=== PATIENT | female | born 1990 | race Caucasian/White ===

== ENCOUNTER 2018-09-02 03:59 | Emergency (ER) | payer OTHER ==
[~2018-09-02] VITALS: Ht 162.6 cm; Wt 58.0 kg
[2018-09-02] MEDS ORDERED: allergy medication PO (04:51)
[2018-09-02] MEDS ORDERED: NORG1TAB6 PO (04:51)
[2018-09-02] MEDS ORDERED: MONT10TA9 PO (04:51)
[2018-09-02 04:57] LABS: BASO # 0.1 x10^3/uL (0.0-0.2); BASO % 1 % (0-3); EOS # 0.4 x10^3/uL (0.0-0.7); EOS % 6 % (0-3); HEMATOCRIT 40.8 % (36.0-47.0); LYMPH # 2.2 x10^3/uL (1.0-4.8); LYMPH % 33 % (24-48); MEAN CORPUSCULAR HEMOGLOBIN 31 pg (25-35); MEAN CORPUSCULAR HGB CONC 34 g/dL (31-37); MEAN CORPUSCULAR VOLUME 89 fL (79-100); MONO # 0.4 x10^3/uL (0.0-1.1); MONO % 7 % (0-9); NEUT # 3.5 x10^3uL (1.8-7.7); NEUT % 53 % (31-73); PLATELET COUNT 197 x10^3/uL (140-400); RED BLOOD COUNT 4.58 x10^6/uL (3.50-5.40); RED CELL DISTRIBUTION WIDTH 13.2 % (11.5-14.5); WHITE BLOOD COUNT 6.6 x10^3/uL (4.0-11.0)
--- NOTE | 2018-09-02 05:01 | PHYS DOC ---
Adult General Chief Complaint Chief Complaint: ABDOMINAL PAIN HPI HPI 27-year-old female presents with right lower quadrant abdominal pain for last 2 days. Early yesterday morning, the patient states that she began have an intermittent right sided abdominal cramping. Seemed to be more around her belly button and has migrated over to the right lower quadrant. Pain was not constant but seemed to come and go as it pleases. Nothing seems to make it better or worse. By yesterday evening, the pain was more frequent. She was unable to have sex with her because of pain. The pain woke her from her sleep about 2 hours prior to arrival. Any kind of bouncing or vibration of her body makes the pain worse. She has had intermittent nausea, but no vomiting. She denies diarrhea. Her last bowel movement was this morning. She is on control and does not believe she is . She denies dysuria or urinary frequency. She has no fever or chills. She's never had any abdominal surgery. Review of Systems Review of Systems Constitutional: Denies fever or chills [] Eyes: Denies change in visual acuity, redness, or eye pain [] HENT: Denies nasal congestion or sore throat [] Respiratory: Denies cough or shortness of breath [] Cardiovascular: No additional information not addressed in HPI [] GI: RLQ abdominal pain, nausea. No vomiting, bloody stools or diarrhea [] : Denies dysuria or hematuria [] Musculoskeletal: Denies back pain or joint pain [] Integument: Denies rash or skin lesions [] Neurologic: Denies headache, focal weakness or sensory changes [] Endocrine: Denies polyuria or polydipsia [] All other systems were reviewed and found to be within normal limits, except as documented in this note. Allergies Allergies Allergies Coded Allergies Type Severity Reaction Last Updated Verified No Known Drug Allergies 09/02/18 No Physical Exam Physical Exam Constitutional: Well developed, well nourished, no acute distress, non-toxic appearance. [] HENT: Normocephalic, atraumatic, bilateral external ears normal, oropharynx moist, no oral exudates, nose normal. [] Eyes: PERRLA, EOMI, conjunctiva normal, no discharge. [] Neck: Normal range of motion, no tenderness, supple, no stridor. [] Cardiovascular:Heart rate regular rhythm, no murmur [] Lungs & Thorax: Bilateral breath sounds clear to auscultation [] Abdomen: RLQ abdominal tenderness without rebound or guarding. [] Skin: Warm, dry, no erythema, no rash. [] Back: No tenderness, no CVA tenderness. [] Extremities: No tenderness, no cyanosis, no clubbing, ROM intact, no edema. [] Neurologic: Alert and oriented X 3, normal motor function, normal sensory function, no focal deficits noted. [] Psychologic: Affect normal, judgement normal, mood normal. [] Current Patient Data Lab Results Laboratory Tests Test 09/02/18 04:28 POC Urine HCG, Qualitative hcg negative (Negative) EKG EKG [] Radiology/Procedures Radiology/Procedures [] Impressions: CT abdomen and pelvis with contrast: Reason for examination: Right lower quadrant pain with nausea started last night. Helical images were obtained through the abdomen pelvis with intravenous administration of 75 cc Omnipaque 300. Reconstruction was performed in sagittal and coronal planes. Exposure: One or more of the following individualized dose reduction techniques were utilized for this examination: 1. Automated exposure control 2. Adjustment of the mA and/or kV according to patient size 3. Use of iterative reconstruction technique. The lung bases are clear. The heart size is normal with no pericardial effusion. No abnormality seen at the liver, spleen, gallbladder, adrenal glands or pancreas. The abdominal aorta and inferior vena cava show no acute abnormalities. The kidneys show a 2 cm cystic lesion with wall calcification posteriorly in the upper pole the right kidney. No renal calculi, hydronephrosis or obstructive uropathy is seen. No abnormality seen at the appendix. There is no evidence of diverticulosis or diverticulitis. The small intestinal tract is not distended. The stomach is not distended. No bowel obstruction is evident. No abnormality seen at the bladder. No abnormality seen at the uterus. There is a probable 2 cm cyst at the right ovary with free fluid in the pelvic cul-de-sac. No abnormality seen at the left ovary. No acute bony abnormalities are seen. IMPRESSION: 2 cm cystic lesion in the upper pole the right kidney with calcification in the wall. Hypoechoic probable 2 cm cystic lesion in the right ovary with fluid in pelvic cul-de-sac. No abnormality seen at the appendix. Electronically signed by: Adali Christopher MD (09/02/2018 5:40 AM) [facility] DICTATED AND SIGNED BY: ADALI CHRISTOPHER MD DATE: 09/02/18 0529 CC: DEE HILTON DO; TURNER HINOJOSA Course & Med Decision Making Course & Med Decision Making Pertinent Labs and Imaging studies reviewed. (See chart for details) The patient's labs are unremarkable. Her urinalysis does suggest UTI and I will cover her with antibiotics. The patient's CT scan shows a cystic lesion in the upper pole of the right kidney. It also shows a probable 2 cm cyst in the right ovary with fluid in the pelvic cul-de-sac. It seems likely that this free fluid is the cause of the patient's pain. The fluid is most likely coming from the cyst. I will provide pain medication, Neola 5/325, for the patient and advise that she follow up with OB to ensure that this has resolved. She is stable for discharge at this time. Dragon Disclaimer Dragon Disclaimer This electronic medical record was generated, in whole or in part, using a voice recognition dictation system. Departure Departure: Referrals: TURNER HINOJOSA (PCP) Scripts Hydrocodone Bit/Acetaminophen (NORCO 5-325 TABLET) 1 Each Tablet 1 TAB PO PRN Q6HRS PRN for PAIN, #10 TAB 0 Refills Prov: DEE HILTON DO 09/02/18 Sulfamethoxazole/Trimethoprim (BACTRIM DS TABLET) 1 Each Tablet 1 TAB PO BID for 3 Days, #6 TAB Prov: DEE HILTON DO 09/02/18 DEE HILTON DO Sep 02, 2018 05:01
[2018-09-02 05:03] LABS: BILIRUBIN,URINE NEG (NEG); CLARITY,URINE CLOUDY; COLOR,URINE YELLOW; GLUCOSE,URINE NEG (NEG); UROBILINOGEN,URINE 0.2 mg/dL (0.2 mg/dL)
[2018-09-02 05:04] LABS: AMORPHOUS SEDIMENT,UR PRESENT /HPF; BACTERIA,URINE MANY /HPF (0-FEW); NITRITE,URINE NEG (NEG); SQUAMOUS EPITHELIAL CELL,UR MOD /LPF; WBC,URINE >40 /HPF (0-4)
[2018-09-02 05:08] LABS: ALBUMIN 3.5 g/dL (3.4-5.0); CALCIUM 8.5 mg/dL (8.5-10.1); CREATININE 0.7 mg/dL (0.6-1.0); GFR 101.1; POTASSIUM 3.7 mmol/L (3.5-5.1); TOTAL BILIRUBIN 0.3 mg/dL (0.2-1.0); TOTAL PROTEIN 6.9 g/dL (6.4-8.2)
[2018-09-02] MEDS ORDERED: IOHEXOL 300 MG/ML 75 ML VIAL. IV ONE (05:15)
[2018-09-02] MEDS ORDERED: CONTRAST GIVEN MC PRN (05:15)
--- NOTE | 2018-09-02 05:43 | RAD ---
CT abdomen and pelvis with contrast: Reason for examination: Right lower quadrant pain with nausea started last night. Helical images were obtained through the abdomen pelvis with intravenous administration of 75 cc Omnipaque 300. Reconstruction was performed in sagittal and coronal planes. Exposure: One or more of the following individualized dose reduction techniques were utilized for this examination: 1. Automated exposure control 2. Adjustment of the mA and/or kV according to patient size 3. Use of iterative reconstruction technique. The lung bases are clear. The heart size is normal with no pericardial effusion. No abnormality seen at the liver, spleen, gallbladder, adrenal glands or pancreas. The abdominal aorta and inferior vena cava show no acute abnormalities. The kidneys show a 2 cm cystic lesion with wall calcification posteriorly in the upper pole the right kidney. No renal calculi, hydronephrosis or obstructive uropathy is seen. No abnormality seen at the appendix. There is no evidence of diverticulosis or diverticulitis. The small intestinal tract is not distended. The stomach is not distended. No bowel obstruction is evident. No abnormality seen at the bladder. No abnormality seen at the uterus. There is a probable 2 cm cyst at the right ovary with free fluid in the pelvic cul-de-sac. No abnormality seen at the left ovary. No acute bony abnormalities are seen. IMPRESSION: 2 cm cystic lesion in the upper pole the right kidney with calcification in the wall. Hypoechoic probable 2 cm cystic lesion in the right ovary with fluid in pelvic cul-de-sac. No abnormality seen at the appendix. Electronically signed by: Adali Torre MD (09/02/2018 5:40 AM) [facility]
[2018-09-02] MEDS ORDERED: SULF1TAB24 PO (06:04)
[2018-09-02] MEDS ORDERED: HYDR-971 PO (06:04)
[2018-09-02 06:15] VITALS: BP 118/72
[2018-09-02] MEDS ORDERED: HYDROcodone/APAP 5/325MG 1 TAB TABLET PO ONE (06:15)
== END 2018-09-02 06:20 | disposition home or self-care (01) ==
LOC: ER 03:59
DX: N39.0 Urinary tract infection, site not specified (principal); Q61.9 Cystic kidney disease, unspecified
CPT/HCPCS: 36415; 74177; 80053; 81001; 81025; 85025; 87086; 99285; Q9967

== ENCOUNTER 2019-08-08 20:41 | Emergency (ER) | payer OTHER ==
[~2019-08-08] VITALS: Ht 162.6 cm; Wt 57.5 kg
[~2019-08-08 20:41] MED LIST: HYDR-3165 PO; MONT10TA80 PO; NORG1TAB6 PO; SULF1TAB24 PO; allergy medication PO
--- NOTE | 2019-08-08 21:06 | PHYS DOC ---
Past History Past Medical History: Asthma, Fibromyalgia, Kidney Stones Past Surgical History: No Surgical History Alcohol Use: Rarely Drug Use: None Adult General Chief Complaint Chief Complaint: MULTIPLE COMPLAINTS HPI HPI Patient is a 28-year-old female presents to the emergency department for evaluation. Her main reason for coming to the emergency department today is that she has been having 6-8 weeks of left-sided head pain, fullness, and paresthesias on the left side of her face. She has also been having intermittent paresthesias in her extremities �4 for the past several months as well. She has seen numerous physicians, including her primary care provider, a neurobiologist due to "inflammation in her chest" which was diagnosed as costochondritis, and has an appointment set up for rheumatology next , for diagnosis of fibro myalgia. The patient states that she is concerned about the ongoing symptoms and her head, and presented to the emergency department for evaluation. She has not had any muscle weakness, vision changes, nausea, vomiting, or diarrhea. Her LMP was 2 weeks ago, she takes control, and denies . The concern is more of the fullness and tingling on the left side of her face, the headache is a more minor component. There are no alleviating or exacerbating factors to her symptoms. Review of Systems Review of Systems Constitutional: Denies fever or chills [] Eyes: Denies change in visual acuity, redness, or eye pain [] HENT: Denies nasal congestion or sore throat [] Respiratory: Denies cough or shortness of breath [] Cardiovascular: The patient denies any shortness of breath, chest pain, palpitations, or orthopnea [] GI: Denies abdominal pain, nausea, vomiting, bloody stools or diarrhea [] : Denies dysuria or hematuria [] Musculoskeletal: Denies back pain or joint pain [] Integument: Denies rash or skin lesions [] Neurologic: Denies focal weakness or coordination difficulties[] Endocrine: Denies polyuria or polydipsia [] All other systems were reviewed and found to be within normal limits, except as documented in this note. Allergies Allergies Allergies Coded Allergies Type Severity Reaction Last Updated Verified No Known Drug Allergies 09/02/18 No Physical Exam Physical Exam PHYSICAL EXAM: CONSTITUTIONAL: Well developed, well nourished HEAD: normocephalic, atraumatic EENT: PERRL, EOMI. Conjunctivae normal color, sclerae non-icteric; moist mucous membranes. Tympanic membranes are normal bilaterally. NECK: Supple, non-tender; no meningismus. LUNGS: Lungs CTA, breathing even and unlabored. Normal air movement. HEART: Regular rate and rhythm, no murmur CHEST: No deformity; non-tender ABDOMEN: The abdomen is soft, and non-tender, no masses or bruits. EXTREM: Normal ROM; no deformity, no calf tenderness. Normal pulses palpable in all extremities. There is no pedal edema. SKIN: No rash; no diaphoresis NEURO: Alert; normal speech and cognition; CN's grossly intact; strength grossly intact without focal deficit. Sensation is grossly intact. Lndhyg-mghg-eoffpt and heel hemphill testing is normal. Visual cruz are intact by confrontation. BACK: No CVA TTP. EKG EKG [] Radiology/Procedures Radiology/Procedures PROCEDURE: CT HEAD WO CONTRAST Exam: CT head INDICATION: Left-sided headache TECHNIQUE: Sequential axial images through the head were obtained without the administration of IV contrast. Comparisons: None FINDINGS: No focal parenchymal lesion or hemorrhage is identified. There is no midline shift or sulcal effacement. No acute vascular territory infarction is identified. Millan-white distinction is preserved. The ventricular system is within normal limits without compression hydrocephalus. The basal cisterns are well maintained. The visualized portions of the paranasal sinuses and mastoid air cells are well-pneumatized. No acute fractures. IMPRESSION: No acute intracranial abnormality.[] Course & Med Decision Making Course & Med Decision Making I discussed test results with the patient, the need for further outpatient evaluation of her ongoing symptoms, possible need for neurology follow-up, and return precautions in detail. Dragon Disclaimer Dragon Disclaimer This electronic medical record was generated, in whole or in part, using a voice recognition dictation system. Departure Departure: Impression: Primary Impression: Paresthesias Additional Impression: Headache Disposition: HOME, SELF-CARE Condition: STABLE Referrals: TURNER HINOJOSA (PCP) Patient Instructions: General Headache Without Cause, Paresthesia Additional Instructions: Follow-up with neurology, Dr. Steve, . Please call to schedule appointment. Problem Qualifiers SWATHI GARNER MD Aug 08, 2019 21:06
[2019-08-08] MEDS ORDERED: ACETAMINOPHEN 500 MG TABLET PO ONE (21:15)
--- NOTE | 2019-08-08 21:41 | RAD ---
Exam: CT head INDICATION: Left-sided headache TECHNIQUE: Sequential axial images through the head were obtained without the administration of IV contrast. Comparisons: None FINDINGS: No focal parenchymal lesion or hemorrhage is identified. There is no midline shift or sulcal effacement. No acute vascular territory infarction is identified. Millan-white distinction is preserved. The ventricular system is within normal limits without compression hydrocephalus. The basal cisterns are well maintained. The visualized portions of the paranasal sinuses and mastoid air cells are well-pneumatized. No acute fractures. IMPRESSION: No acute intracranial abnormality. Exposure: One or more of the following in the visualized dose reduction techniques were utilized for this examination: 1. Automated exposure control 2. Adjustment of the MA and/or KV according to patient size Use of iterative of reconstructive technique Electronically signed by: Vero Munguia MD (08/08/2019 9:39 PM) [facility]
[2019-08-08 22:00] VITALS: BP 124/87
== END 2019-08-08 23:15 | disposition home or self-care (01) ==
LOC: ER 20:41
DX: R51 Headache (principal); R20.2 Paresthesia of skin; J45.909 Unspecified asthma, uncomplicated; M79.7 Fibromyalgia; Z87.442 Personal history of urinary calculi
CPT/HCPCS: 70450; 99284-25

== ENCOUNTER 2020-10-27 17:03 | Emergency (ER) | payer OTHER ==
[~2020-10-27] VITALS: Ht 162.6 cm; Wt 57.5 kg
[2020-10-27 17:53] LABS: BASO % 1 % (0-3); EOS # 0.1 x10^3/uL (0.0-0.7); EOS % 1 % (0-3); HEMATOCRIT 36.7 % (36.0-47.0); HEMOGLOBIN 12.2 g/dL (12.0-15.5); LYMPH # 1.7 x10^3/uL (1.0-4.8); LYMPH % 29 % (24-48); MEAN CORPUSCULAR HEMOGLOBIN 30 pg (25-35); MEAN CORPUSCULAR HGB CONC 33 g/dL (31-37); MEAN CORPUSCULAR VOLUME 91 fL (79-100); MONO # 0.5 x10^3/uL (0.0-1.1); MONO % 8 % (0-9); NEUT # 3.7 x10^3uL (1.8-7.7); NEUT % 61 % (31-73); PLATELET COUNT 171 x10^3/uL (140-400); RED BLOOD COUNT 4.03 x10^6/uL (3.50-5.40); RED CELL DISTRIBUTION WIDTH 13.6 % (11.5-14.5)
[2020-10-27 18:01] LABS: CALCIUM 8.4 mg/dL (8.5-10.1); CREATININE 0.7 mg/dL (0.6-1.0); GFR 98.9; POTASSIUM 3.2 mmol/L (3.5-5.1)
[2020-10-27 18:02] LABS: AMORPHOUS SEDIMENT,UR PRESENT /HPF; BACTERIA,URINE 0 /HPF (0-FEW); BILIRUBIN,URINE NEG (NEG); CLARITY,URINE CLOUDY; COLOR,URINE COLORLESS; GLUCOSE,URINE NEG (NEG); NITRITE,URINE NEG (NEG); RBC,URINE 0 /HPF (0-2); SQUAMOUS EPITHELIAL CELL,UR MOD /LPF; WBC,URINE 0 /HPF (0-4)
[2020-10-27] MEDS ORDERED: ONDANSETRON PF 4 MG/2 ML VIAL. IVP ONE (20:00)
[2020-10-27] MEDS ORDERED: IV NORMAL SALINE 1,000ML 1,000 ML IV ONE (20:00)
--- NOTE | 2020-10-27 20:06 | RAD ---
Exam: Ultrasound pelvis Indication: Pelvic pain, 8 weeks Technique: Real-time grayscale and color Doppler images of the pelvis were obtained by the department food safety manager. Comparisons: None FINDINGS: Uterus measures 9.5 x 4.8 x 4.9 cm. Within the endometrium there is complex fluid. No distinct yolk sac or pole is identified. Right ovary measures 2.4 x 1.9 x 1.8 cm. There is a complex heterogenous mass in the left adnexa adjacent to the left ovary which measures approximately 2.0 x 1.1 cm. The mass is rounded measuring approximately 2.6 x 3.3 cm. There is a moderate amount of complex fluid noted within the pelvis IMPRESSION: 1. Heterogenous mass in the left adnexa measuring approximately 2.6 x 3.3 cm which is adjacent to the left ovary, concerning for ectopic . 2. Small amount of complex fluid within the endometrium without distinct pole or yolk sac identified. No normal intrauterine is identified. 3. Moderate amount of complex free fluid in the pelvis. FOR INTERNAL CODING PURPOSES Critical result: Findings discussed with CORBY BRANDON at 10/27/2020 7:56 PM. RESULT CODE: (C) Electronically signed by: Vero Munguia MD (10/27/2020 8:03 PM) [facility]
--- NOTE | 2020-10-27 20:20 | PHYS DOC ---
Past History Past Medical History: Asthma, Fibromyalgia, Kidney Stones Past Surgical History: No Surgical History Alcohol Use: None Drug Use: None General Adult EDM: Chief Complaint: ABDOMINAL PAIN IN HPI: HPI: Patient is a 50-year-old female who presents emergency department with complaints of a sudden onset of severe lower abdominal pain that began today. Patient states she is currently , her last menstrual cycle was on September 10, 2020. She is 3, para 2, with no previous history. Patient states she has not been evaluated by her [facility] for this yet. She denies any fever, shortness of breath, dysuria, hematuria, increased urinary frequency, nausea, vomiting, or diarrhea. She denies any irregular vaginal discharge or vaginal odor. Patient states she has had some slight cramping in h er low back today. She states that this time she feels lightheaded but denies any syncope. She currently rates pain a 6 out of 10 on pain scale, she denies any alleviating factors. She states that the pain is sharp and stabbing. Review of Systems: Review of Systems: Complete ROS is negative unless otherwise noted in HPI. Current Medications: Current Meds: Current Medications Medications (Trade) Dose Ordered Sig/Johanna Start Time Stop Time Status Last Admin Dose Admin Fentanyl Citrate (Fentanyl 2ml Vial) 50 mcg 1X ONCE 10/27/20 20:00 10/27/20 20:10 DC 10/27/20 20:00 50 MCG Ondansetron HCl (Zofran) 4 mg 1X ONCE 10/27/20 20:00 10/27/20 20:10 DC 10/27/20 20:00 4 MG Sodium Chloride 1,000 ml @ 1,000 mls/hr 1X ONCE 10/27/20 20:00 10/27/20 20:59 10/27/20 20:00 1,000 MLS/HR Allergies: Allergies: Allergies Coded Allergies Type Severity Reaction Last Updated Verified No Known Drug Allergies 09/02/18 No Physical Exam: PE: See Above Constitutional: Well developed, well nourished, moderate distress, non-toxic appearance, appears uncomfortable HENT: Normocephalic, atraumatic, bilateral external ears normal, nose normal. [] Eyes: PERRLA, EOMI, conjunctiva normal, no discharge. [] Neck: Normal range of motion, no stridor. [] Cardiovascular:Heart rate regular rhythm Lungs & Thorax: Respirations even and unlabored, no retractions, no respiratory distress Abdomen: soft, suprapubic tenderness to palpation that is worst on the left, no rebound tenderness, no guarding Skin: Warm, dry, no erythema, no rash. [] Extremities: No cyanosis, ROM intact, no edema. [] Neurologic: Alert and oriented X 3, no focal deficits noted. [] Psychologic: Affect normal, judgement normal, mood normal. [] Current Patient Data: Labs: Laboratory Tests Test 10/27/20 17:35 10/27/20 17:37 10/27/20 17:40 White Blood Count 6.0 x10^3/uL (4.0-11.0) Red Blood Count 4.03 x10^6/uL (3.50-5.40) Hemoglobin 12.2 g/dL (12.0-15.5) Hematocrit 36.7 % (36.0-47.0) Mean Corpuscular Volume 91 fL (79-100) Mean Corpuscular Hemoglobin 30 pg (25-35) Mean Corpuscular Hemoglobin Concent 33 g/dL (31-37) Red Cell Distribution Width 13.6 % (11.5-14.5) Platelet Count 171 x10^3/uL (140-400) Neutrophils (%) (Auto) 61 % (31-73) Lymphocytes (%) (Auto) 29 % (24-48) Monocytes (%) (Auto) 8 % (0-9) Eosinophils (%) (Auto) 1 % (0-3) Basophils (%) (Auto) 1 % (0-3) Neutrophils # (Auto) 3.7 x10^3uL (1.8-7.7) Lymphocytes # (Auto) 1.7 x10^3/uL (1.0-4.8) Monocytes # (Auto) 0.5 x10^3/uL (0.0-1.1) Eosinophils # (Auto) 0.1 x10^3/uL (0.0-0.7) Basophils # (Auto) 0.0 x10^3/uL (0.0-0.2) Maternal Serum HCG Beta Subunit 5756 mIU/mL (0-6) H Sodium Level 137 mmol/L (136-145) Potassium Level 3.2 mmol/L (3.5-5.1) L Chloride Level 104 mmol/L (98-107) Carbon Dioxide Level 28 mmol/L (21-32) Anion Gap 5 (6-14) L Blood Urea Nitrogen 9 mg/dL (7-20) Creatinine 0.7 mg/dL (0.6-1.0) Estimated GFR (Cockcroft-Gault) 98.9 Glucose Level 108 mg/dL (70-99) H Calcium Level 8.4 mg/dL (8.5-10.1) L Urine Collection Type Unknown Urine Color Colorless Urine Clarity Cloudy Urine pH 7.5 Urine Specific [place] 1.020 Urine Protein Neg (NEG-TRACE) Urine Glucose (UA) Neg mg/dL (NEG) Urine Ketones (Stick) 15 mg/dL (NEG) Urine Blood Trace (NEG) Urine Nitrite Neg (NEG) Urine Bilirubin Neg (NEG) Urine Urobilinogen Dipstick 1.0 mg/dL (0.2 mg/dL) Urine Leukocyte Esterase Neg (NEG) Urine RBC 0 /HPF (0-2) Urine WBC 0 /HPF (0-4) Urine Squamous Epithelial Cells Mod /LPF Urine Amorphous Sediment Present /HPF Urine Bacteria 0 /HPF (0-FEW) POC Urine HCG, Qualitative hcg positive (Negative) Vital Signs: Vital Signs Date Time Temp Pulse Resp B/P (MAP) Pulse Ox O2 Delivery O2 Flow Rate FiO2 10/27/20 20:00 16 98 Room Air 10/27/20 17:11 97.6 78 111/75 (87) EKG: EKG: [] Radiology/Procedures: Radiology/Procedures: PROCEDURE: OB <14 WKS Exam: Ultrasound pelvis Indication: Pelvic pain, 8 weeks Technique: Real-time grayscale and color Doppler images of the pelvis were obtained by the department air pollution analyst. Comparisons: None FINDINGS: Uterus measures 9.5 x 4.8 x 4.9 cm. Within the endometrium there is complex fluid. No distinct yolk sac or pole is identified. Right ovary measures 2.4 x 1.9 x 1.8 cm. There is a complex heterogenous mass in the left adnexa adjacent to the left ovary which measures approximately 2.0 x 1.1 cm. The mass is rounded measuring approximately 2.6 x 3.3 cm. There is a moderate amount of complex fluid noted within the pelvis IMPRESSION: 1. Heterogenous mass in the left adnexa measuring approximately 2.6 x 3.3 cm which is adjacent to the left ovary, concerning for ectopic . 2. Small amount of complex fluid within the endometrium without distinct pole or yolk sac identified. No normal intrauterine is identified. 3. Moderate amount of complex free fluid in the pelvis.[] Heart Score: Risk Factors: Risk Factors: DM, Current or recent (<one month) smoker, HTN, HLP, family history of CAD, obesity. Risk Scores: Score 0 - 3: 2.5% MACE over next 6 weeks - Discharge Home Score 4 - 6: 20.3% MACE over next 6 weeks - Admit for Clinical Observation Score 7 - 10: 72.7% MACE over next 6 weeks - Early Invasive Strategies Course & Med Decision Making: Course & Med Decision Making Pertinent Labs and Imaging studies reviewed. (See chart for details) 1954-I spoke with Dr. Palumbo who is on-call for [employer] [facility] and advised of the patient in the emergency room. I informed her of the suspected ruptured ectopic of the patient and need for transfer. Patient is hemodynamically stable at this time. 2002- I spoke with the assistant housekeeping manager at [facility], laura Sutton advised her of the patient's need for transfer due to ruptured ectopic . Lesley will call back with the patient's room number [] Renee Disclaimer: Renee Disclaimer: This electronic medical record was generated, in whole or in part, using a voice recognition dictation system. Departure Departure: Impression: Primary Impression: Ruptured ectopic Disposition: 02 DC/TRF OTHER SHORT TERM HOS Admitting Physician: Other (Dr. Deepali Bhagat) Condition: STABLE Referrals: TURNER HINOJOSA (PCP) LOYD HIDALGO SUPERVISOR [employer]VERTISING [employer]ERKS Oct 27, 2020 20:20
[2020-10-27 20:23] VITALS: BP 138/75
== END 2020-10-27 20:55 | disposition short-term general hospital (02) ==
LOC: ER 17:03
DX: O00.80 Other ectopic pregnancy without intrauterine pregnancy (principal); O99.511 Diseases of the respiratory system complicating pregnancy, first trimester; J45.909 Unspecified asthma, uncomplicated; M79.7 Fibromyalgia; Z87.442 Personal history of urinary calculi
CPT/HCPCS: 36415; 76801; 80048; 81001; 81025; 84702; 85025; 96361; 96374; 96375; 99285; J2405; J3010; J7030

== ENCOUNTER → 2020-11-05 | Outpatient (CLI) | payer OTHER ==
[2020-10-27 20:23] VITALS: BP 138/75
--- NOTE | 2020-11-05 12:28 | RAD ---
US DPLX VENOUS EXTREMITY UPPER LT 11/05/2020 11:50 AM INDICATION: Left arm numbness and tingling COMPARISON: None available. TECHNIQUE: Sonographic evaluation of the left upper extremity venous system is performed utilizing g rayscale and color Doppler. FINDINGS/ IMPRESSION: There is no thrombus identified within the left internal jugular vein, axillary, subclavian, brachial , radial and ulnar veins. There is normal compressibility and phasicity. Cephalic and basilic veins a re patent. No evidence for DVT. Electronically signed by: Lola Dent MD (11/05/2020 12:25 PM) [facility]
== END ==
LOC: US 10:33
PROVIDERS: ATTEND Family Medicine
DX: R20.0 Anesthesia of skin (principal); R20.2 Paresthesia of skin
CPT/HCPCS: 93971

== ENCOUNTER 2020-11-09 22:42 | Emergency (ER) | payer OTHER ==
[~2020-11-09] VITALS: Ht 162.6 cm; Wt 57.5 kg
--- NOTE | 2020-11-09 22:45 | PHYS DOC ---
Past History Past Medical History: Asthma, Fibromyalgia, Kidney Stones Past Surgical History Ruptured ectopic -surgery [facility] Alcohol Use: None Drug Use: None General Adult HPI: HPI: ".. My LT arm is hurting...bad.. in my Lt shoulder ..and chest... it has been constant for three days... Dr. Arguelles did an ultrasound of my left arm and there is no blood clot... But I am worried because I had emergent surgery at [facility] for ruptured ectopic . on the .. .. Originally I was to get surgery at [facility] but... I refused to get surgery after I been transferred from here...I was going to follow up at [facility] .. and try to do meds for ectopic.. but it had ruptured.. and I had to get emergency surgery at [facility] (10/29.). but I ve had this really bad chest pain.. and worried.. it maybe a blood clot,.. or pulmonary embolism.. or a heart attack..." " I ve been hurting constant the last three days.. " I do have cardiology follow up in the morning..." Patient is a 30 year old female who presents with above hx and complaints left shoulder, chest, upper arm pain which has been constant for the last 3 days. Patient has significant medical history of a ruptured ectopic which required emergent surgery at [facility] on 10/29. Patient initially diagnosed with ectopic and was transferred to [facility] on . However patient refused surgery at [facility] and wanted to do chemotherapy for the ectopic . Upon follow-up at [facility] with her OB she was found to have a ruptured ectopic on the 10/29 and underwent emergent surgery at that time. Patient was discharged from [facility] on 11/05. Since that time patient has seen Dr. Farmer her primary and received ultrasound of her upper arm reportedly 11/05,. Pt. had no findings of DVT at that time on review of US. Pt. very concerned she has had an acute NE three days ago. Patient denies previous cardiac issues. No family history of early cardiac disease. No history of recent travel or other specific ill contacts and or Covid risk.s Review of Systems: Review of Systems: Constitutional: Denies fever or chills Eyes: Denies change in visual acuity HENT: Denies nasal congestion or sore throat Respiratory: Denies cough or shortness of breath Cardiovascular: Complains of chest pain GI: Denies abdominal pain, nausea, vomiting, bloody stools or diarrhea : Denies dysuria Musculoskeletal: Complains of left shoulder pain Integument: Denies rash Neurologic: Denies headache, focal weakness or sensory changes Endocrine: Denies polyuria or polydipsia Lymphatic: Denies swollen glands Psychiatric: Denies depression or anxiety Family History: Family History: Noncontributory to presentation Current Medications: Current Meds: See nursing for home meds Allergies: Allergies: Allergies Coded Allergies Type Severity Reaction Last Updated Verified No Known Drug Allergies 09/02/18 No Physical Exam: PE: Constitutional: Reports moderately acute distress, non-toxic appearance. [] HENT: Normocephalic, atraumatic, bilateral external ears normal, oropharynx moist, no oral exudates, nose normal. [] Eyes: PERRLA, EOMI, conjunctiva normal, no discharge. [] Neck: Normal range of motion, no tenderness, supple, no stridor. [] Cardiovascular:Heart rate regular rhythm, no murmur [] Lungs & Thorax: Bilateral breath sounds equal apex on auscultation [] Abdomen: Bowel sounds normal, soft, no tenderness, no masses, no pulsatile masses. Surgery suture lines appear to be stable and no infection. Skin: Warm, dry, no erythema, no rash. [] Back: No tenderness, no CVA tenderness. [] Extremities: No tenderness, no cyanosis, no clubbing, ROM intact, no edema. No cording appreciated and upper arm or legs Neurologic: Alert and oriented X 3, normal motor function, normal sensory function, no focal deficits noted. [] Psychologic: Affect very anxious, judgement normal, mood normal. [] EKG: EKG: My interpretation EKG shows a sinus rhythm, rate of 70 bpm, with no acute morphology. [] Radiology/Procedures: Radiology/Procedures: [][address] [address] IMAGING REPORT Signed PATIENT: CARL ELISE ACCOUNT: [id number] : 1990 LOCATION: ER AGE: 30 SEX: F EXAM STATUS: REG ER ORD. PHYSICIAN: HEATHER RODRIGUEZ MD REASON: cp, pleuritic,recent ectopic rupture & surgery OPR Omni 350 100c PROCEDURE: CT ANGIOGRAPHY CHEST INDICATION: Reason: cp, pleuritic,recent ectopic rupture surgery OPR Omni 350 100c / Spl. Instructions: / History: COMPARISON: None. TECHNIQUE: Axial CT images obtained through the chest. Intravenous contrast utilized. Angiogram 3D images processed per protocol. One or more of the following individualized dose reduction techniques were utilized for this examination: 1. Automated exposure control; 2. Adjustment of the mA and/or kV according to patient size; 3. Use of iterative reconstruction technique. FINDINGS: No evidence of pneumothorax. No focal airspace consolidation to suggest pneumonia. Partially visualized liver appears prominent in size. Portion of ascending thoracic aorta is obscured by motion but no aneurysm or dissection flap at visualized portion of thoracic aorta. There are some sclerotic foci in the osseous structures which are most commonly secondary to bone islands. No pulmonary embolus is identified. IMPRESSION: 1. No central pulmonary embolus or focal airspace consolidation. Electronically signed by: Arianna Luis MD (11/10/2020 1:00 AM) [email or web address] [id number] DICTATED AND SIGNED BY: ARIANNA LUIS MD DATE: 11/10/2050 CC: HEATHER RODRIGUEZ MD; TURNER ARGUELLES ~MTH0 0 IMAGING REPORT Signed PATIENT: CARL ELISE ACCOUNT: [id number] : 1990 LOCATION: ER AGE: 30 SEX: F EXAM STATUS: REG ER ORD. PHYSICIAN: HEATHER RODRIGUEZ MD REASON: Chest pain, recent ectopic with surgery PROCEDURE: CHEST AP ONLY INDICATION: Reason: Chest pain, recent ectopic with surgery / Spl. Instructions: / History: COMPARISON: November 09, 2020 CT FINDINGS: Single view of chest obtained. No focal airspace consolidation. Cardiomediastinal contour unremarkable. No acute osseous abnormality. IMPRESSION: * No focal airspace consolidation or edema. Electronically signed by: Arianna Luis MD (11/10/2020 1:17 AM) [email or web address]- [id number] DICTATED AND SIGNED BY: ARIANNA LUIS MD DATE: 11/10/20 0116 CC: HEATHER RODRIGUEZ MD; TURNER ARGUELLES ~MTH0 0 Heart Score: HEART Score for Chest Pain: HEART Score for Chest Pain Response (Comments) Value History Slighlty/Non-Suspicious 0 ECG Normal 0 Age < 45 0 Risk Factors 1 or 2 Risk Factors 1 Troponin < Normal Limit 0 Total 1 Risk Factors: Risk Factors: DM, Current or recent (<one month) smoker, HTN, HLP, family history of CAD, obesity. Risk Scores: Score 0 - 3: 2.5% MACE over next 6 weeks - Discharge Home Score 4 - 6: 20.3% MACE over next 6 weeks - Admit for Clinical Observation Score 7 - 10: 72.7% MACE over next 6 weeks - Early Invasive Strategies Course & Med Decision Making: Course & Med Decision Making Pertinent Labs and Imaging studies reviewed. (See chart for details) Patient did take Tylenol and ibuprofen for pain. Patient keep follow-up with cardiology as planned in the morning. Patient return if any concerns. Keep follow-up with Dr. Farmer. Do suspect pain is related to her ruptured ectopic . Suspect pain is secondary to diaphragm irritation, secondary to ovarian cyst rupture versus ectopic rupture. Impression: 1. Hx. ectopic rupture and surgery on 10/29/20 2. Chest wall and left shoulder and upper arm pain x 3 days-constant 3. History of ovarian cyst [] Dragon Disclaimer: Renee Disclaimer: This electronic medical record was generated, in whole or in part, using a voice recognition dictation system. Departure Departure: Referrals: TURNER ARGUELLES (PCP) Renee Disclaimer This chart was dictated in whole or in part using Voice Recognition software in a busy, high-work load, and often noisy Emergency Department environment. It may contain unintended and wholly unrecognized errors or omissions. HEATHER RODRIGUEZ MD Nov 09, 2020 22:45
[2020-11-09] MEDS ORDERED: IV RINGERS SOLUTION,LACTATED 1,000 ML IV SCH (23:45)
[2020-11-09] MEDS ORDERED: MORPHINE SULFATE 10 MG/ML SYRINGE. SQ ONE (23:55)
[2020-11-10] MEDS ORDERED: CONTRAST GIVEN. MC PRN
[2020-11-10] MEDS ORDERED: IOHEXOL 350 MG/ML 100 ML VIAL. IV ONE
[2020-11-10 00:28] LABS: BASO % 1 % (0-3); EOS # 0.1 x10^3/uL (0.0-0.7); EOS % 2 % (0-3); HEMATOCRIT 37.3 % (36.0-47.0); HEMOGLOBIN 12.2 g/dL (12.0-15.5); LYMPH % 31 % (24-48); MEAN CORPUSCULAR HEMOGLOBIN 30 pg (25-35); MEAN CORPUSCULAR HGB CONC 33 g/dL (31-37); MEAN CORPUSCULAR VOLUME 90 fL (79-100); MONO # 0.5 x10^3/uL (0.0-1.1); MONO % 8 % (0-9); NEUT # 3.9 x10^3uL (1.8-7.7); NEUT % 60 % (31-73); PLATELET COUNT 199 x10^3/uL (140-400); RED BLOOD COUNT 4.14 x10^6/uL (3.50-5.40); RED CELL DISTRIBUTION WIDTH 13.4 % (11.5-14.5); WHITE BLOOD COUNT 6.5 x10^3/uL (4.0-11.0)
[2020-11-10 00:37] LABS: BILIRUBIN,URINE NEG (NEG); CLARITY,URINE CLEAR; COLOR,URINE YELLOW; GLUCOSE,URINE NEG (NEG); NITRITE,URINE NEG (NEG); RBC,URINE OCC /HPF (0-2); UROBILINOGEN,URINE 0.2 mg/dL (0.2 mg/dL); WBC,URINE OCC /HPF (0-4)
[2020-11-10 00:38] LABS: AMORPHOUS SEDIMENT,UR PRESENT /HPF; BACTERIA,URINE 0 /HPF (0-FEW); SQUAMOUS EPITHELIAL CELL,UR FEW /LPF
[2020-11-10 00:39] LABS: CALCIUM 8.5 mg/dL (8.5-10.1); CREATININE 0.7 mg/dL (0.6-1.0); GFR 98.9; POTASSIUM 3.7 mmol/L (3.5-5.1)
[2020-11-10 00:40] LABS: AMPHETAMINE/METHAMPHETAMINE NEG (NEG); BARBITURATES NEG (NEG); BENZODIAZEPINES NEG (NEG); CANNABINOIDS NEG (NEG); COCAINE NEG (NEG); METHADONE NEG (NEG); OPIATES NEG (NEG); PHENCYCLIDINE NEG (NEG)
[2020-11-10 00:52] LABS: ALBUMIN 3.7 g/dL (3.4-5.0); DIRECT BILIRUBIN 0.1 mg/dL (0.0-0.2); MAGNESIUM 2.1 mg/dL (1.8-2.4); TOTAL BILIRUBIN 0.2 mg/dL (0.2-1.0); TOTAL PROTEIN 6.9 g/dL (6.4-8.2)
--- NOTE | 2020-11-10 01:03 | RAD ---
INDICATION: Reason: cp, pleuritic,recent ectopic rupture surgery OPR Omni 350 100c / Spl. Instruct ions: / History: COMPARISON: None. TECHNIQUE: Axial CT images obtained through the chest. Intravenous contrast utilized. Angiogram 3D images proce ssed per protocol. One or more of the following individualized dose reduction techniques were utilized for this examinat ion: 1. Automated exposure control; 2. Adjustment of the mA and/or kV according to patient size; 3 . Use of iterative reconstruction technique. FINDINGS: No evidence of pneumothorax. No focal airspace consolidation to suggest pneumonia. Partially visualized liver appears prominent in size. Portion of ascending thoracic aorta is obscured by motion but no aneurysm or dissection flap at visua lized portion of thoracic aorta. There are some sclerotic foci in the osseous structures which are most commonly secondary to bone isl ands. No pulmonary embolus is identified. IMPRESSION: 1. No central pulmonary embolus or focal airspace consolidation. Electronically signed by: Claude Luis MD (11/10/2020 1:00 AM) [id number]
--- NOTE | 2020-11-10 01:19 | RAD ---
INDICATION: Reason: Chest pain, recent ectopic with surgery / Spl. Instructions: / History : COMPARISON: November 09, 2020 CT FINDINGS: Single view of chest obtained. No focal airspace consolidation. Cardiomediastinal contour unremarkable. No acute osseous abnormality. IMPRESSION: * No focal airspace consolidation or edema. Electronically signed by: Claude Luis MD (11/10/2020 1:17 AM) [id number]
--- NOTE | 2020-11-10 01:36 | EKG ---
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
[2020-11-10 02:10] VITALS: BP 124/73
== END 2020-11-10 02:10 | disposition home or self-care (01) ==
LOC: ER 22:42
DX: M25.512 Pain in left shoulder (principal); R07.89 Other chest pain; M79.602 Pain in left arm; Z98.890 Other specified postprocedural states; J45.909 Unspecified asthma, uncomplicated; M79.7 Fibromyalgia; Z87.442 Personal history of urinary calculi
CPT/HCPCS: 36415; 71045; 71275; 80048; 80076; 80307; 81001; 82550; 83690; 83735; 83880; 84443; 84484; 84702; 85025; 85379; 85610; 85730; 93005; 96360; 96372; 99285; J2270; J7120; Q9967

== ENCOUNTER 2022-01-02 11:47 | Emergency (ER) | payer BC, OTHER ==
[~2022-01-02] VITALS: Ht 162.6 cm; Wt 57.5 kg
[2022-01-02 12:07] VITALS: BP 135/84
[2022-01-02 13:42] LABS: BASO % 1 % (0-3); EOS # 0.1 x10^3/uL (0.0-0.7); EOS % 2 % (0-3); HEMATOCRIT 40.2 % (36.0-47.0); HEMOGLOBIN 13.5 g/dL (12.0-15.5); LYMPH # 1.2 x10^3/uL (1.0-4.8); LYMPH % 20 % (24-48); MEAN CORPUSCULAR HEMOGLOBIN 31 pg (25-35); MEAN CORPUSCULAR HGB CONC 34 g/dL (31-37); MEAN CORPUSCULAR VOLUME 93 fL (79-100); MONO # 0.5 x10^3/uL (0.0-1.1); MONO % 8 % (0-9); NEUT # 4.3 x10^3uL (1.8-7.7); NEUT % 70 % (31-73); PLATELET COUNT 179 x10^3/uL (140-400); RED BLOOD COUNT 4.31 x10^6/uL (3.50-5.40); RED CELL DISTRIBUTION WIDTH 12.5 % (11.5-14.5); WHITE BLOOD COUNT 6.1 x10^3/uL (4.0-11.0)
[2022-01-02 13:49] LABS: CALCIUM 8.8 mg/dL (8.5-10.1); CREATININE 0.7 mg/dL (0.6-1.0); GFR 98.3; POTASSIUM 3.9 mmol/L (3.5-5.1)
[2022-01-02 13:53] LABS: BACTERIA,URINE 0 /HPF (0-FEW); BILIRUBIN,URINE NEG (NEG); CLARITY,URINE CLEAR; COLOR,URINE YELLOW; GLUCOSE,URINE NEG (NEG); NITRITE,URINE NEG (NEG); SQUAMOUS EPITHELIAL CELL,UR MOD /LPF; UROBILINOGEN,URINE 0.2 mg/dL (0.2 mg/dL); WBC,URINE OCC /HPF (0-4)
[2022-01-02 14:02] LABS: ALBUMIN 3.9 g/dL (3.4-5.0); ALBUMIN/GLOBULIN RATIO 1.3 (1.0-1.7); MAGNESIUM 1.9 mg/dL (1.8-2.4); PHOSPHORUS 5.1 mg/dL (2.6-4.7); TOTAL BILIRUBIN 0.6 mg/dL (0.2-1.0)
--- NOTE | 2022-01-02 14:16 | RAD ---
Single view chest dated 01/02/2022 2:14 PM: COMPARISON: 11/10/2020 Clinical Indication: Chest palpitations. Findings: Single upright portable exam of the chest was performed. Heart size and mediastinal contours are with in normal limits. Lungs are clear. No consolidation or pleural effusion. No pneumothorax. IMPRESSION: No acute radiographic abnormality. Electronically signed by: Emanuel Caldwell MD (01/02/2022 2:14 PM) [id number]
--- NOTE | 2022-01-02 15:26 | PHYS DOC ---
Past History Past Medical History: Asthma, Fibromyalgia, Kidney Stones Additional Past Medical Histor: fibromyalgia; lymes disease (EMANUEL CESAR APRN) Past Surgical History: Other Additional Past Surgical Histo: eptopic (EMANUEL CESAR APRN) Alcohol Use: None Drug Use: None (EMANUEL CESAR APRN) Adult General Chief Complaint Chief Complaint: SHORTNESS OF BREATH HPI HPI Patient is a 31-year-old female who presents to the emergency department complaining of feeling off for the past 2 days, reports intermittent dizziness and shakiness with sensation of heart skipping beats. 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 Patient is worried her heart might be involved with her symptoms. Patient denies nausea, chest pain, fever chills, reports intermittent shortness of breath when she is feeling her heart skipping beats. Patient reports she has started her menstrual cycle today. Patient denies abdominal pains, diarrhea or constipation. Patient denies vaginal discharge or STI concerns. Patient denies other physical complaints or physical concerns. (EMANUEL CESAR APRN) Review of Systems Review of Systems 14 body systems of review of systems have been reviewed. See HPI for pertinent positives and negative responses, otherwise all other systems are negative, nonpertinent or noncontributory. Constitutional: Negative except as outlined in HPI above. Skin: Negative except as outlined in HPI above. Eyes: Negative except as outlined in HPI above. HENT: Negative except as outlined in HPI above. Respiratory: Negative except as outlined in HPI above. Cardiovascular: Negative except as outlined in HPI above. GI: Negative except as outlined in HPI above. : Negative except as outlined in HPI above. Musculoskeletal: Negative except as outlined in HPI above. Integument: Negative except as outlined in HPI above. Neurologic: Negative except as outlined in HPI above. Endocrine: Negative except as outlined in HPI above. Lymphatic: Negative except as outlined in HPI above. Psychiatric: Negative except as outlined in HPI above. (EMANUEL CESAR APRN) Allergies Allergies Allergies Coded Allergies Type Severity Reaction Last Updated Verified No Known Drug Allergies 09/02/18 No (EMANUEL CESAR APRN) Physical Exam Physical Exam Constitutional: Well developed, well nourished, no acute distress, non-toxic appearance. 31-year-old female in no apparent distress. HENT: Normocephalic, atraumatic. Eyes: Conjunctiva normal, no discharge. Neck: Normal range of motion, no stridor. Cardiovascular: No cyanosis appreciated, distal cap refill less than 2 seconds. Heart sounds S1-S2, no appreciable murmur per auscultation, regular rate and rhythm. Lungs & Thorax: Patient is in no respiratory distress, no audible adventitious lung sounds appreciated. Lung sounds clear to auscultation all lung cruz, normal work of breathing. Abdomen: Nontender, no abnormalities noted. Skin: Warm, dry, no erythema, no rash. Back: No tenderness, no deformities. Extremities: No tenderness, no cyanosis, no clubbing, ROM intact, no edema. Neurologic: Alert and oriented X 3, normal motor function, normal sensory function, no focal deficits noted. Psychologic: Affect normal, judgement normal, mood normal. (EMANUEL CESAR APRN) Current Patient Data Vital Signs Vital Signs Date Time Temp Pulse Resp B/P (MAP) Pulse Ox O2 Delivery O2 Flow Rate FiO2 01/02/22 12:07 92 18 135/84 (101) 99 Lab Results Laboratory Tests Test 01/02/22 13:22 01/02/22 13:33 White Blood Count 6.1 x10^3/uL (4.0-11.0) Red Blood Count 4.31 x10^6/uL (3.50-5.40) Hemoglobin 13.5 g/dL (12.0-15.5) Hematocrit 40.2 % (36.0-47.0) Mean Corpuscular Volume 93 fL (79-100) Mean Corpuscular Hemoglobin 31 pg (25-35) Mean Corpuscular Hemoglobin Concent 34 g/dL (31-37) Red Cell Distribution Width 12.5 % (11.5-14.5) Platelet Count 179 x10^3/uL (140-400) Neutrophils (%) (Auto) 70 % (31-73) Lymphocytes (%) (Auto) 20 % (24-48) L Monocytes (%) (Auto) 8 % (0-9) Eosinophils (%) (Auto) 2 % (0-3) Basophils (%) (Auto) 1 % (0-3) Neutrophils # (Auto) 4.3 x10^3uL (1.8-7.7) Lymphocytes # (Auto) 1.2 x10^3/uL (1.0-4.8) Monocytes # (Auto) 0.5 x10^3/uL (0.0-1.1) Eosinophils # (Auto) 0.1 x10^3/uL (0.0-0.7) Basophils # (Auto) 0.0 x10^3/uL (0.0-0.2) Urine Collection Type Clean catch Urine Color Yellow Urine Clarity Clear Urine pH 7.0 Urine Specific [place] 1.010 Urine Protein Neg (NEG-TRACE) Urine Glucose (UA) Neg mg/dL (NEG) Urine Ketones (Stick) Neg mg/dL (NEG) Urine Blood Mod (NEG) Urine Nitrite Neg (NEG) Urine Bilirubin Neg (NEG) Urine Urobilinogen Dipstick 0.2 mg/dL (0.2 mg/dL) Urine Leukocyte Esterase Neg (NEG) Urine RBC 1-2 /HPF (0-2) Urine WBC Occ /HPF (0-4) Urine Squamous Epithelial Cells Mod /LPF Urine Bacteria 0 /HPF (0-FEW) Sodium Level 144 mmol/L (136-145) Potassium Level 3.9 mmol/L (3.5-5.1) Chloride Level 105 mmol/L (98-107) Carbon Dioxide Level 28 mmol/L (21-32) Anion Gap 11 (6-14) Blood Urea Nitrogen 13 mg/dL (7-20) Creatinine 0.7 mg/dL (0.6-1.0) Estimated GFR (Cockcroft-Gault) 98.3 BUN/Creatinine Ratio 19 (6-20) Glucose Level 87 mg/dL (70-99) Calcium Level 8.8 mg/dL (8.5-10.1) Phosphorus Level 5.1 mg/dL (2.6-4.7) H Magnesium Level 1.9 mg/dL (1.8-2.4) Total Bilirubin 0.6 mg/dL (0.2-1.0) Aspartate Amino Transferase (AST) 22 U/L (15-37) Alanine Aminotransferase (ALT) 54 U/L (14-59) Alkaline Phosphatase 95 U/L (46-116) Troponin I High Sensitivity 5 ng/L (4-50) ST-Clc-N-Type Natriuretic Peptide 13 pg/mL (0-124) Total Protein 7.0 g/dL (6.4-8.2) Albumin 3.9 g/dL (3.4-5.0) Albumin/Globulin Ratio 1.3 (1.0-1.7) Lipase 89 U/L (73-393) POC Urine HCG, Qualitative hcg negative (Negative) (EMANUEL CESAR APRN) EKG EKG EKG performed at 1303 by ED nursing staff shows a normal sinus rhythm without ectopy, [place] interval 0.148, QTc interval 0.368, heart rate 75 bpm, no acute STEMI, no ACS, no acute ischemia appreciated, EKG interpreted by ED attending physician Dr. Hilton. (EMANUEL CESAR APRN) Radiology/Procedures Radiology/Procedures REASON: Chest palpitations PROCEDURE: CHEST AP ONLY Single view chest dated 01/02/2022 2:14 PM: COMPARISON: 11/10/2020 Clinical Indication: Chest palpitations. Findings: Single upright portable exam of the chest was performed. Heart size and mediastinal contours are within normal limits. Lungs are clear. No consolidation or pleural effusion. No pneumothorax. IMPRESSION: No acute radiographic abnormality. Electronically signed by: Emanuel Caldwell MD (01/02/2022 2:14 PM) [id number] (EMANUEL CESAR APRN) Heart Score C/O Chest Pain: No Risk Factors: Risk Factors: DM, Current or recent (<one month) smoker, HTN, HLP, family history of CAD, obesity. Risk Scores: Risk Factors: DM, Current or recent (<one month) smoker, HTN, HLP, family history of CAD, obesity. (EMANUEL CESAR APRN) Course & Med Decision Making Course & Med Decision Making Pertinent Labs and Imaging studies reviewed. (See chart for details) 31-year-old female, vital signs reviewed, presents emergency department discerning intermittent shakiness and dizziness with heart skipping beats. Patient's physical examination is unremarkable, vital signs are within normal limits, will order urinalysis assay, urine test, EKG, chest x-ray, CBC, CMP, high-sensitivity troponin I, mag, Phos, NT proBNP. Cardiac monitoring, NIBP monitoring, pulse ox monitoring. Chest x-ray unremarkable, EKG unremarkable, labs unremarkable, the patient is not per urine test, patient does show hematuria however is on menstrual cycle. Upon reevaluation of the patient, patient remains nontoxic in appearance and in no apparent distress, discussed findings with patient, recommended strict follow-up with primary care for ongoing symptoms, discussed strict return to ER precautions and concerns, patient gave verbal understanding of and is amenable to ED discharge planning. Discussed with the patient all findings and diagnostic testing as well as the need to follow-up with their primary care provider for further evaluation and treatment or return to the ED if any new or worsening symptoms. Strict return precautions were also discussed at length, the patient voiced understanding and agreement with the discharge planning. The patient was nontoxic in appearance, in no apparent distress, and hemodynamically stable at the time of disposition. (EMANUEL CESAR APRN) Dragon Disclaimer Dragon Disclaimer This electronic medical record was generated, in whole or in part, using a voice recognition dictation system. (EMANUEL CESAR APRN) Attending Co-Sign The patient was seen and interviewed as well as examined at the bedside. The chart was reviewed. The case was discussed. Agree with the plan of care. (DEE HILTON DO) Departure Departure: Impression: Primary Impression: Shortness of breath Disposition: 01 HOME / SELF CARE / HOMELESS Condition: GOOD Referrals: TURNER HINOJOSA (PCP) Additional Instructions: You were seen today in the emergency department for experiencing periods of shortness of breath and heart skipping beats. A chest x-ray did not show any concerning findings of pneumonia or other pulmonary or cardiac disease, your EKG was within normal limits and did not show any concerning findings of heart disease or arrhythmias or heart attack. Your cardiac enzymes were within normal limits and nonconcerning. Your other blood lab work did not show any concerning findings of anemia or infection or electrolyte imbalance. As we discussed, please follow-up with your primary care physician this week for ongoing ileana luation of your symptoms. Return immediately to the emergency department for any return of chest pain, increased shortness of breath, or other concerns. Thank you for visiting our Emergency Department. It was a pleasure taking care of you today in the emergency department and we appreciate you trusting us with your care. If any additional problems come up don't hesitate to return to visit us. Please follow up with your primary care provider so they can plan additional care if needed and know about the problem that you had. If symptoms worsen come back to the Emergency Department. Any concerning symptoms that start such as chest pain, shortness of air, weakness or numbness on one side of the body, running high fevers or any other concerning symptoms return to the ER. EMERGENCY DEPARTMENT GENERAL DISCHARGE INSTRUCTIONS Thank you for coming to [facility] (ED) today and trusting us with you care. We trust that you had a positivie experience in our Emergency Department. If you wish to speak to the department management, you may call the director at [phone]. YOUR FOLLOW UP INSTRUCTIONS ARE FOLLOWS: 1. Do you have a private Doctor? If you do not have a private doctor, please ask for a resource list of physicians or clinics that may be able to assist you with follow up care. 2. The Emergency Physician has interpreted your x-rays. The X-Ray specialist will also review them. If there is a change in the findings, you will be notified in 48 hours when at all possible. 3. A lab test or culture has been done, your results will be reviewed and you will be notified if you need a change in treatment. ADDITIONAL INSTRUCTIONS AND INFORMATION: 1. Your care today has been supervised by a physician who is specially trained in emergency care. Many problems require more than one evaluation for a complete diagnosis and treatment. We recommend that you schedule your follow up appointment as recommended to ensure complete treatment of you illness or injury. If you are unable to obtain follow up care and continue to have a problem, or if your condition worsens, we recommend that you return to the ED. 2. We are not able to safely determine your condition over the phone nor are we able to give sound medical advice over the phone. For these safety reasons, if you call for medical advice we will ask you to come to the ED for further evaluation. 3. If you have any questions regarding these discharge instructions please call the ED at [phone]. SAFETY INFORMATION: In the interest of safety, wellness, and injury prevention; we encourage you to wear your sealbelt, if you smoke; quite smoking, and we encourage family to use a protective helmet for bicycling and other sporting events that present an increased risk for head injury. IF YOUR SYMPTOMS WORSEN OR NEW SYMPTOMS DEVELOP, OR YOU HAVE CONCERNS ABOUT YOUR CONDITION; OR IF YOUR CONDITION WORSENS WHILE YOU ARE WAITING FOR YOUR FOLLOW UP APPOINTMENT; EITHER CONTACT YOUR PRIMARY CARE DOCTOR, THE PHYSICIAN WHOSE NAME AND NUMBER YOU WERE GIVEN, OR RETURN TO THE ED IMMEDIATELY. EMANUEL CESAR APRN Jan 02, 2022 15:26 DEE HILTON DO Jan 03, 2022 10:25
--- NOTE | 2022-01-02 15:40 | EKG ---
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
== END 2022-01-02 15:36 | disposition home or self-care (01) ==
LOC: ER 11:47
DX: R06.02 Shortness of breath (principal); R42 Dizziness and giddiness; J45.909 Unspecified asthma, uncomplicated; M79.7 Fibromyalgia; Z87.442 Personal history of urinary calculi
CPT/HCPCS: 36415; 71045; 80053; 81001; 81025; 83690; 83735; 83880; 84100; 84484; 85025; 93005; 99285

== ENCOUNTER 2022-02-02 10:55 | Emergency (ER) | payer BC ==
[~2022-02-02] VITALS: Ht 162.6 cm; Wt 63.1 kg
[2022-02-02 11:08] VITALS: BP 140/93
--- NOTE | 2022-02-02 11:46 | EKG ---
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
[2022-02-02 12:02] LABS: BASO % 0 % (0-3); EOS % 0 % (0-3); HEMATOCRIT 43.5 % (36.0-47.0); HEMOGLOBIN 14.6 g/dL (12.0-15.5); LYMPH % 11 % (24-48); MEAN CORPUSCULAR HEMOGLOBIN 31 pg (25-35); MEAN CORPUSCULAR HGB CONC 34 g/dL (31-37); MEAN CORPUSCULAR VOLUME 92 fL (79-100); MONO # 0.3 x10^3/uL (0.0-1.1); MONO % 3 % (0-9); NEUT # 7.7 x10^3uL (1.8-7.7); NEUT % 86 % (31-73); PLATELET COUNT 197 x10^3/uL (140-400); RED BLOOD COUNT 4.72 x10^6/uL (3.50-5.40); RED CELL DISTRIBUTION WIDTH 13.3 % (11.5-14.5); WHITE BLOOD COUNT 8.9 x10^3/uL (4.0-11.0)
[2022-02-02 12:10] LABS: CALCIUM 9.1 mg/dL (8.5-10.1); CREATININE 0.7 mg/dL (0.6-1.0); GFR 98.3; POTASSIUM 3.9 mmol/L (3.5-5.1)
--- NOTE | 2022-02-02 12:11 | RAD ---
PQRS Compliance Statement: One or more of the following individualized dose reduction techniques were utilized for this examinat ion: 1. Automated exposure control 2. Adjustment of the mA and/or kV according to patient size 3. Use of iterative reconstruction technique CT HEAD WITHOUT CONTRAST History: Reason: numbness,tingling / Spl. Instructions: / History: Comparison: None. Procedure: Axial images are obtained of the head from the skull base through the vertex without IV co ntrast. Findings: The ventricles and sulci are normal for the patient's age. No mass-effect, midline shift, hemorrhage, extra-axial fluid collection, or obvious acute infarction is identified. Basilar cisterns are patent. Bone windows demonstrate no acute calvarial abnormality. The visualized paranasal sinuses are clear. Mastoid air cells are well aerated. IMPRESSION: No acute intracranial abnormality. Electronically signed by: Benito Marte MD (02/02/2022 12:09 PM) [id number]
[2022-02-02 12:15] LABS: ALBUMIN 3.8 g/dL (3.4-5.0); ALBUMIN/GLOBULIN RATIO 1.2 (1.0-1.7); MAGNESIUM 2.4 mg/dL (1.8-2.4); TOTAL BILIRUBIN 0.7 mg/dL (0.2-1.0)
--- NOTE | 2022-02-02 12:52 | PHYS DOC ---
Past History Past Medical History: Asthma, Fibromyalgia, Kidney Stones Additional Past Medical Histor: fibromyalgia; lymes disease (MARGARITO MIKE APRN) Past Surgical History: Other Additional Past Surgical Histo: eptopic (MARGARITO MIKE APRN) Alcohol Use: None Drug Use: None (MARGARITO MIKE APRN) General Adult EDM: Chief Complaint: MULTIPLE COMPLAINTS HPI: HPI: Patient is a 31-year-old female who presents with planes of numbness and tingling, headache, shakiness. Patient states "I am 12 weeks and 2 weeks ago started having all of these weird symptoms". "I feel like that I am going to fall over or my balance is off when I am walking". "I looked on [employer] and I think I have an epidural abscess". Patient states that she has been to her PCP for the complaints. Patient had blood work done and also sent to an refrigeration operator. Patient states that they were unable to find anything wrong with her. Patient has history of anxiety, depression, fibromyalgia, asthma. (MARGARITO MIKE APRN) Review of Systems: Review of Systems: ROS At least 10 ROS systems have been reviewed and are negative except as documented in the HPI. General: Negative except as outlined in HPI above. Skin: Negative except as outlined in HPI above. HEENT: Negative except as outlined in HPI above. Neck: Negative except as outlined in HPI above. Respiratory: Negative except as outlined in HPI above.. Cardiovascular: Negative except as outlined in HPI above. Abdomen: Negative except as outlined in HPI above. : Negative except as outlined in HPI above. Back/MSK: Negative except as outlined in HPI above. Neuro: Negative except as outlined in HPI above. Psych: Negative except as outlined in HPI above. (MARGARITO MIKE APRN) Allergies: Allergies: Allergies Coded Allergies Type Severity Reaction Last Updated Verified No Known Drug Allergies 09/02/18 No (MARGARITO MIKE APRN) Physical Exam: PE: Constitutional: Well developed, well nourished, no acute distress, non-toxic appearance. [] HENT:bilateral external ears normal, oropharynx moist, no oral exudates, nose normal. [] Eyes: PERRLA conjunctiva normal, no discharge. [] Neck: Normal range of motion, no tenderness, supple, no stridor. [] Cardiovascular:Heart rate regular rhythm, no murmur [] Lungs & Thorax: Bilateral breath sounds clear to auscultation [] Abdomen: Bowel sounds normal, soft, no tenderness, no masses, no pulsatile masses. [] Skin: Warm, dry, no erythema, no rash. [] Back: No tenderness, no CVA tenderness. [] Extremities: No tenderness, no abnormality in strength, ROM intact, no edema. [] Neurologic: Alert and oriented X 3, normal motor function, normal sensory function, no focal deficits noted. [] Psychologic: Anxious mood, normal affect (MIKE,MARGARITO WORKFORCE PLANNING ANALYST) Current Patient Data: Labs: Laboratory Tests Test 02/02/22 11:45 White Blood Count 8.9 x10^3/uL (4.0-11.0) Red Blood Count 4.72 x10^6/uL (3.50-5.40) Hemoglobin 14.6 g/dL (12.0-15.5) Hematocrit 43.5 % (36.0-47.0) Mean Corpuscular Volume 92 fL (79-100) Mean Corpuscular Hemoglobin 31 pg (25-35) Mean Corpuscular Hemoglobin Concent 34 g/dL (31-37) Red Cell Distribution Width 13.3 % (11.5-14.5) Platelet Count 197 x10^3/uL (140-400) Neutrophils (%) (Auto) 86 % (31-73) H Lymphocytes (%) (Auto) 11 % (24-48) L Monocytes (%) (Auto) 3 % (0-9) Eosinophils (%) (Auto) 0 % (0-3) Basophils (%) (Auto) 0 % (0-3) Neutrophils # (Auto) 7.7 x10^3uL (1.8-7.7) Lymphocytes # (Auto) 1.0 x10^3/uL (1.0-4.8) Monocytes # (Auto) 0.3 x10^3/uL (0.0-1.1) Eosinophils # (Auto) 0.0 x10^3/uL (0.0-0.7) Basophils # (Auto) 0.0 x10^3/uL (0.0-0.2) Sodium Level 140 mmol/L (136-145) Potassium Level 3.9 mmol/L (3.5-5.1) Chloride Level 105 mmol/L (98-107) Carbon Dioxide Level 27 mmol/L (21-32) Anion Gap 8 (6-14) Blood Urea Nitrogen 13 mg/dL (7-20) Creatinine 0.7 mg/dL (0.6-1.0) Estimated GFR (Cockcroft-Gault) 98.3 BUN/Creatinine Ratio 19 (6-20) Glucose Level 112 mg/dL (70-99) H Calcium Level 9.1 mg/dL (8.5-10.1) Magnesium Level 2.4 mg/dL (1.8-2.4) Total Bilirubin 0.7 mg/dL (0.2-1.0) Aspartate Amino Transferase (AST) 16 U/L (15-37) Alanine Aminotransferase (ALT) 36 U/L (14-59) Alkaline Phosphatase 76 U/L (46-116) Total Protein 7.0 g/dL (6.4-8.2) Albumin 3.8 g/dL (3.4-5.0) Albumin/Globulin Ratio 1.2 (1.0-1.7) Lipase 80 U/L (73-393) Vital Signs: Vital Signs Date Time Temp Pulse Resp B/P (MAP) Pulse Ox O2 Delivery O2 Flow Rate FiO2 02/02/22 11:08 98.0 98 16 140/93 (109) 99 (MARGARITO MIKE APRN) EKG: EKG: Sinus rhythm. Heart rate 91 bpm. [] (MARGARITO MIKE APRN) Radiology/Procedures: Radiology/Procedures: []PQRS Compliance Statement: One or more of the following individualized dose reduction techniques were utilized for this examination: 1. Automated exposure control 2. Adjustment of the mA and/or kV according to patient size 3. Use of iterative reconstruction technique CT HEAD WITHOUT CONTRAST History: Reason: numbness,tingling / Spl. Instructions: / History: Comparison: None. Procedure: Axial images are obtained of the head from the skull base through the vertex without IV contrast. Findings: The ventricles and sulci are normal for the patient's age. No mass-effect, midline shift, hemorrhage, extra-axial fluid collection, or obvious acute infarction is identified. Basilar cisterns are patent. Bone windows demonstrate no acute calvarial abnormality. The visualized paranasal sinuses are clear. Mastoid air cells are well aerated. IMPRESSION: No acute intracranial abnormality. Electronically signed by: Benito Marte MD (02/02/2022 12:09 PM) [id number] (MARGARITO MIKE APRN) Heart Score: C/O Chest Pain: No Risk Factors: Risk Factors: DM, Current or recent (<one month) smoker, HTN, HLP, family history of CAD, obesity. Risk Scores: Score 0 - 3: 2.5% MACE over next 6 weeks - Discharge Home Score 4 - 6: 20.3% MACE over next 6 weeks - Admit for Clinical Observation Score 7 - 10: 72.7% MACE over next 6 weeks - Early Invasive Strategies (MARGARITO MIKE APRN) Course & Med Decision Making: Course & Med Decision Making Pertinent Labs and Imaging studies reviewed. (See chart for details) [] Nontoxic-appearing, 31-year-old female presents with complaints of numbness and tingling, headache, shakiness. Patient had a vaginal delivery 12 weeks ago. Patient reports that symptoms started after delivering the baby. Denies any complications with . Patient's been evaluated by refrigeration operator and PCP with lab work with no abnormal results. Patient states that she feels like she is going to fall over when she stands up, and numbness and tingling throughout her body. Patient reports she started taking Prozac 4 days ago but states symptoms started prior to that. Physical exam was unremarkable. NIH of 0. Work-up in ER consist of labs, urinalysis, urine , CT head. All labs unremarkable. CT head negative for any acute abnormality. Discussed results with patient. Advised patient she will need to follow back up with her PCP for further testing. Discussed return precautions in length. Patient reports that she understands discharge instructions. (MARGARITO MIKE APRN) Dragon Disclaimer: Dragon Disclaimer: This electronic medical record was generated, in whole or in part, using a voice recognition dictation system. (MARGARITO MIKE APRN) Attending Co-Sign The patient was seen and interviewed as well as examined at the bedside. The chart was reviewed. The case was discussed. Agree with the plan of care. (DEE HILTON DO) Departure Departure: Impression: Primary Impression: Headache Qualified Codes: R51.9 - Headache, unspecified Additional Impression: Tingling Disposition: 01 HOME / SELF CARE / HOMELESS Condition: STABLE Referrals: TURNER HINOJOSA (PCP) Patient Instructions: General Headache Without Cause, [id number] Additional Instructions: You were seen in the emergency room for headache, numbness and tingling, shakiness. We obtained labs and a CT of your head. All of your labs were unremarkable. CT of your head was negative for any acute abnormalities. You will need to follow-up with your PCP for further imaging and testing. Please return to the emergency room for worsening symptoms or concerns. EMERGENCY DEPARTMENT GENERAL DISCHARGE INSTRUCTIONS Thank you for coming to [facility] (ED) today and trusting us with you care. We trust that you had a positivie experience in our Emergency Department. If you wish to speak to the department management, you may call the director at [phone]. YOUR FOLLOW UP INSTRUCTIONS ARE FOLLOWS: 1. Do you have a private Doctor? If you do not have a private doctor, please ask for a resource list of physicians or clinics that may be able to assist you with follow up care. 2. The Emergency Physician has interpreted your x-rays. The X-Ray specialist will also review them. If there is a change in the findings, you will be notified in 48 hours when at all possible. 3. A lab test or culture has been done, your results will be reviewed and you will be notified if you need a change in treatment. ADDITIONAL INSTRUCTIONS AND INFORMATION: 1. Your care today has been supervised by a physician who is specially trained in emergency care. Many problems require more than one evaluation for a complete diagnosis and treatment. We recommend that you schedule your follow up appointment as recommended to ensure complete treatment of you illness or injury. If you are unable to obtain follow up care and continue to have a problem, or if your condition worsens, we recommend that you return to the ED. 2. We are not able to safely determine your condition over the phone nor are we able to give sound medical advice over the phone. For these safety reasons, if you call for medical advice we will ask you to come to the ED for further evaluation. 3. If you have any questions regarding these discharge instructions please call the ED at [phone]. SAFETY INFORMATION: In the interest of safety, wellness, and injury prevention; we encourage you to wear your sealbelt, if you smoke; quite smoking, and we encourage family to use a protective helmet for bicycling and other sporting events that present an increased risk for head injury. IF YOUR SYMPTOMS WORSEN OR NEW SYMPTOMS DEVELOP, OR YOU HAVE CONCERNS ABOUT YOUR CONDITION; OR IF YOUR CONDITION WORSENS WHILE YOU ARE WAITING FOR YOUR FOLLOW UP APPOINTMENT; EITHER CONTACT YOUR PRIMARY CARE DOCTOR, THE PHYSICIAN WHOSE NAME AND NUMBER YOU WERE GIVEN, OR RETURN TO THE ED IMMEDIATELY. MARGARITO MIKE APRN Feb 02, 2022 12:52 DEE HILTON DO Feb 03, 2022 06:14
[2022-02-02 13:22] LABS: AMORPHOUS SEDIMENT,UR PRESENT /HPF; BACTERIA,URINE 0 /HPF (0-FEW); CLARITY,URINE CLEAR; COLOR,URINE YELLOW; GLUCOSE,URINE NEG (NEG); NITRITE,URINE NEG (NEG); SQUAMOUS EPITHELIAL CELL,UR FEW /LPF; UROBILINOGEN,URINE 0.2 mg/dL (0.2 mg/dL)
== END 2022-02-02 13:23 | disposition home or self-care (01) ==
LOC: ER 10:55
DX: R51.9 Headache, unspecified (principal); R20.2 Paresthesia of skin; J45.909 Unspecified asthma, uncomplicated; M79.7 Fibromyalgia; Z87.442 Personal history of urinary calculi
CPT/HCPCS: 36415; 70450; 80053; 81001; 81025; 83690; 83735; 85025; 93005; 99285

== ENCOUNTER → 2022-02-26 | Outpatient (CLI) | payer BC ==
[2022-02-02 11:08] VITALS: BP 140/93
--- NOTE | 2022-02-26 09:14 | RAD ---
Study: XR CHEST 2V Indication: Cough. Chest pain. Comparison: 01/02/2022 Findings: The cardiomediastinal silhouette and noe are within normal limits. No localized airspace opacity, pl eural effusion or pneumothorax. Impression: No acute radiographic abnormality of the chest. No relevant change from the 01/02/2022 comparison. Electronically signed by: LM AKERS MD (02/26/2022 9:12 AM) [id number]
== END ==
LOC: DXRAD 08:54
PROVIDERS: ATTEND Nurse Practitioner Family
DX: R05.9 Cough, unspecified (principal); R07.89 Other chest pain
CPT/HCPCS: 71046

== ENCOUNTER → 2022-03-19 | Outpatient (CLI) | payer BC ==
--- NOTE | 2022-03-19 10:36 | RAD ---
EXAMINATION: CT ABDOMEN+PELVIS WO CLINICAL HISTORY: Left lower quadrant abdominal pain. TECHNIQUE: Imaging of the abdomen and pelvis was performed without intravenous contrast using standar d technique, scanning from just above the dome of the diaphragm to the symphysis pubis. Unenhanced i maging is limited for the evaluation of some intra-abdominal and pelvic pathology. CT Dose Reduction Employed: One or more of the following individualized dose reduction techniques wer e utilized for this examination: 1. Automated exposure control 2. Adjustment of the mA and/or kV ac cording to patient size 3. Use of iterative reconstruction technique. COMPARISON: 09/02/2018 FINDINGS: Visualized heart and lungs unremarkable. Liver, gallbladder, pancreas, spleen, and adrenal glands unremarkable. 2.2 cm cyst with peripheral calcification mid to upper pole right kidney, essentially unchanged. Left kidney unremarkable. No visualized urolithiasis or evidence of obstructive uropathy. Mildly filled urinary bladder. Retroflexed uterus. Ovaries unremarkable on limited evaluation. No dilated bowel. Appendix within normal limits. No abdominal aortic or iliac artery aneurysm. No evidence of acute osseous abnormality. IMPRESSION: No evidence of acute abdominopelvic abnormality. Essentially unchanged 2.2 cm right renal cyst with peripheral calcification. Electronically signed by: Royal Bazan DO (03/19/2022 10:34 AM) [facility]
== END ==
LOC: RAD 09:30
PROVIDERS: ATTEND Nurse Practitioner Family
DX: N28.1 Cyst of kidney, acquired (principal); N85.4 Malposition of uterus
CPT/HCPCS: 74176